=== PATIENT | female | born 1995 | race Caucasian/White ===

== ENCOUNTER → 2017-09-08 | Outpatient (CLI) | payer BC ==
[~2017-09-08] MED LIST: ALBIPROI INH; ALBU90I INH; ALBU90OI INH; AMOCLA875 PO; AMOX50SU PO; AZIT250 PO; Ativan0.5 MG PO; CODGUAEL PO; DESL5 PO; GUAI600T33 PO; LAMO100; LAMOTRIGINE200 MG PO; PENVK500 PO; PRED10 PO; RXALBOI INH; ZONEGRAN; [UNRECOGNIZED DRUG - OTHER] PO
[2017-09-09 13:55] LABS: Source CERVICAL
== END ==
LOC: LAB 14:16
PROVIDERS: Registered Nurse Community Health
DX: Z12.4 Encounter for screening for malignant neoplasm of cervix (principal)
CPT/HCPCS: G0123

== ENCOUNTER 2018-04-02 01:23 | Emergency (ER) | payer BC ==
[~2018-04-02] VITALS: Ht 160 cm; Wt 52.2 kg
[~2018-04-02 01:23] MED LIST changes: -LAMOTRIGINE200 MG PO; -ZONEGRAN
[2018-04-02] MEDS ORDERED: ZONEGRAN (02:03)
[2018-04-02] MEDS ORDERED: LAMOTRIGINE200 MG PO (02:13)
[2018-04-02 02:29] LABS: BASOPHILS ABSOLUTE AUTO 0.02 K/mm3 (0.00-0.23); BASOPHILS PERCENT AUTO 0 % (0-2); EOSINOPHILS ABSOLUTE AUTO 0.03 K/mm3 (0.00-0.68); EOSINOPHILS PERCENT AUTO 0 % (0-6); Hematocrit 34.7 % (33.0-51.0); Hemoglobin 11.8 g/dL (11.5-16.0); IMMATURE GRAN ABSOLUTE AUTO 0.01 K/mm3 (0.00-0.10); IMMATURE GRAN PERCENT AUTO 0 % (0-1); LYMPHOCYTES ABSOLUTE AUTO 1.98 K/mm3 (0.84-5.20); LYMPHOCYTES PERCENT AUTO 24 % (21-46); MONOCYTES PERCENT AUTO 6 % (4-13); Mean Corpuscular HGB 29.3 pg (26.0-34.0); Mean Corpuscular Volume 86 fL (80-100); NEUTROPHILS ABSOLUTE AUTO 5.65 K/mm3 (1.96-9.15); NEUTROPHILS PERCENT AUTO 69 % (41-73); Platelet Count 306 K/mm3 (150-400); RDW Standard Deviation 40.5 fL (35.1-46.3); Red Blood Cell Count 4.03 M/mm3 (3.80-5.20); White Blood Cell Count 8.19 K/mm3 (4.00-11.30)
[2018-04-02 02:44] LABS: Anion Gap 9 mmol/L (6-16); Blood Urea Nitrogen 12 mg/dL (8-24); CO2, Blood 23 mmol/L (21-32); Calcium, Blood 8.4 mg/dL (8.5-10.1); Chloride, Blood 110 mmol/L (98-108); Creatinine, Blood 0.92 mg/dL (0.40-1.00); Glomerular Filtration Rate >60 (60-); Glucose, Blood 87 mg/dL (70-99); Potassium, Blood 3.8 mmol/L (3.5-5.5); Sodium, Blood 142 mmol/L (136-145)
== END 2018-04-02 04:09 | disposition home or self-care (01) ==
LOC: ER 01:23
PROVIDERS: Emergency Medicine
DX: S02.611A Fracture of condylar process of right mandible, initial encounter for closed fracture (principal); S02.609A Fracture of mandible, unspecified, initial encounter for closed fracture; G40.909 Epilepsy, unspecified, not intractable, without status epilepticus; Z79.899 Other long term (current) drug therapy; S00.81XA Abrasion of other part of head, initial encounter; W18.30XA Fall on same level, unspecified, initial encounter
CPT/HCPCS: 76380; 80048; 85025; 90714

== ENCOUNTER → 2021-06-10 | Outpatient (CLI) | payer BC ==
[~2021-06-10] MED LIST changes: +LAMOTRIGINE200 MG PO; +ZONEGRAN
== END ==
LOC: LAB 12:52 → LAB SHORT 12:52
DX: N10 Acute pyelonephritis (principal)
CPT/HCPCS: 87086

== ENCOUNTER → 2022-05-09 | Outpatient (CLI) | payer BC | END | disposition home or self-care (01) | LOC: LAB 10:22 → LAB SHORT 10:22 | DX: N39.0 Urinary tract infection, site not specified (principal) | CPT/HCPCS: 87086 ==

== ENCOUNTER → 2022-05-12 | Outpatient (CLI) | payer BC ==
[2022-05-12 16:47] LABS: Albumin, Blood 4.1 g/dL (3.4-5.0); Albumin/Globulin Ratio 1.2 (0.8-1.8); Bilirubin, Total 0.4 mg/dL (0.1-1.0); Bun/Creatinine Ratio 9.4 (12.0-20.0); Calcium, Blood 8.9 mg/dL (8.5-10.1); Creatinine, Blood 1.38 mg/dL (0.40-1.00); Globulin, Blood 3.3 g/dL (2.2-4.0); Potassium, Blood 3.7 mmol/L (3.5-5.5); Total Protein, Blood 7.4 g/dL (6.4-8.2)
== END | disposition home or self-care (01) ==
LOC: LAB SHORT 16:32 → LAB 16:32
PROVIDERS: Family Medicine
DX: N39.0 Urinary tract infection, site not specified (principal)
CPT/HCPCS: 80053; 87086

== ENCOUNTER → 2023-05-27 | Outpatient (CLI) | payer OTHER ==
[2023-05-29 00:09] LABS: HBSAG SCREEN Negative (Negative); HIV AB/P24 AG SCREEN Non Reactive (Non Reactive)
== END | disposition home or self-care (01) ==
LOC: LAB SHORT 13:08 → LAB 13:08
PROVIDERS: Chiropractor
DX: Z20.9 Contact with and (suspected) exposure to unspecified communicable disease (principal)
CPT/HCPCS: 84460; 86317; 86803; 87340; 87389

== ENCOUNTER → 2023-11-17 | Outpatient (CLI) | payer BC | LOC: PLD 14:20 → LAB SHORT 14:20 | DX: D48.5 Neoplasm of uncertain behavior of skin (principal) ==

== ENCOUNTER → 2025-05-01 | Outpatient (CLI) | payer OTHER ==
[~2025-05-01] MED LIST changes: +CEPH500 PO; -ZONEGRAN; +ZONEGRAN PO
== END ==
LOC: LAB SHORT 15:30 → LAB 15:30
DX: N39.0 Urinary tract infection, site not specified (principal)
CPT/HCPCS: 87086